=== PATIENT | female | born 1970 | race Caucasian/White ===

== ENCOUNTER 2018-04-27 10:11 | Day surgery (SDC) | payer BC ==
[~2018-04-27 10:11] MED LIST: SOD CHLORIDE 0.9% 1,000 ML IV
[2018-04-27] MEDS: CEFAZOLIN 2 GM/50 ML (PMX) 50 ML IVPB (12:05)
[2018-04-27] MEDS ORDERED: MIDAZOLAM 1 MG/ML 2 ML INJ (12:08)
[2018-04-27] MEDS ORDERED: BUPIVACAINE 0.25% (MPF) 30 ML INJ (12:15)
[2018-04-27] MEDS: BUPIVACAINE 0.5%/EPI (SDV) 30 ML INJ (13:16)
[2018-04-27] MEDS ORDERED: LIDOCAINE 2% (SDV) 5 ML INJ (13:22)
[2018-04-27] MEDS ORDERED: CEFAZOLIN 1 GM INJ (13:22)
[2018-04-27] MEDS ORDERED: PROPOFOL 20 ML (13:22)
[2018-04-27] MEDS ORDERED: ROCURONIUM 50 MG INJ (13:22)
[2018-04-27] MEDS ORDERED: NEOSTIGMINE 3 MG/3 ML SYRINGE (13:24)
[2018-04-27] MEDS ORDERED: GLYCOPYRROLATE 0.4 MG INJ (13:24)
[2018-04-27] MEDS ORDERED: KETOROLAC 30 MG INJ (13:25)
[2018-04-27] MEDS ORDERED: ONDANSETRON 4 MG INJ (13:25)
[2018-04-27] MEDS ORDERED: ONDANSETRON 4 MG INJ IV ×2 (13:30→14:00)
[2018-04-27] MEDS ORDERED: HYDROCODONE/APAP (5/325) TAB PO (13:30)
[2018-04-27] MEDS ORDERED: morphine 4 MG/ML VIAL IV (13:30)
[2018-04-27] MEDS ORDERED: METOCLOPRAMIDE 10 MG INJ IV (14:00)
[2018-04-27] MEDS ORDERED: MEPERIDINE 25 MG INJ IV (14:00)
[2018-04-27] MEDS ORDERED: DIPHENHYDRAMINE 50 MG INJ IV (14:00)
[2018-04-27] MEDS ORDERED: HYDROmorphONE 1 MG/5 ML IV SYRINGE IV (14:00)
[2018-04-27] MEDS: FENTAnyl 50 MCG/ML VIAL IV (14:19)
[2018-04-27] MEDS: HYDROmorphONE 1 MG/5 ML IV SYRINGE IV (14:19)
[2018-04-27] MEDS: HYDROCODONE/APAP (5/325) TAB PO (15:03)
== END 2018-04-27 15:42 | disposition home or self-care (01) ==
LOC: SDS 10:11
DX: K80.10 Calculus of gallbladder with chronic cholecystitis without obstruction (principal)
CPT/HCPCS: 47562; 88304